=== PATIENT | male | born 1970 ===

== ENCOUNTER 2020-09-14 09:52 | Day surgery (SDC) | payer OTHER ==
[~2020-09-14 09:52] MED LIST: CATAFLAN PO; NORFLEX PO
== END 2020-09-14 19:15 | disposition home or self-care (01) ==
LOC: CIR.AMB 09:52
PROVIDERS: ATTEND Colon & Rectal Surgery
DX: K60.5 Anorectal fistula (principal); Z20.828 Contact with and (suspected) exposure to other viral communicable diseases